=== PATIENT | female | born 1970 | race Caucasian/White ===

== ENCOUNTER → 2020-02-08 | Outpatient (CLI) | payer BC, OTHER, SELFPAY ==
[2020-02-08 11:07] VITALS: BMI 26.0
[2020-02-13 10:47] LABS: HPV APTIMA, High Risk Negative (Negative)
== END | disposition home or self-care (01) ==
PROVIDERS: PCP Family Medicine; Referring Provider Nurse Practitioner Women's Health; Visit Provider Nurse Practitioner Women's Health
DX: Z12.4 Encounter for screening for malignant neoplasm of cervix (principal)
CPT/HCPCS: 87624; 88175; G0145

== ENCOUNTER → 2020-02-12 13:54 | Outpatient (CLI) | payer BC, OTHER, SELFPAY ==
[2020-02-08 11:07] VITALS: BMI 26.0
--- NOTE | 2020-02-12 13:56 | US_ITS ---
STUDY: ULTRASOUND OF THE FEMALE PELVIS - COMPLETE REASON FOR EXAM: Female, 49 years old. Enlarged uterus. LMP: 01/29/2020. TECHNIQUE: Transabdominal and transvaginal. TECHNICAL QUALITY: Adequate. COMPARISON: None. FINDINGS: The uterus is anteverted and is in a midline position. The uterus is enlarged and measures 11.1 x 6.2 x 4.6 cm. Normal uterine cervix. The endometrium measures 6 mm in thickness, and is hyperechoic. There is no demonstrated endometrial mass. The uterine fibroids largest measuring 3.2 x 3.1 x 3.1 cm. Myometrial calcification measuring 0.8 x 0.6 x 0.4 cm. I.U.D. - The patient does not have an I.U.D. Right ovary not visualized. The left ovary is visualized. The left ovary is enlarged and measures 5.0 x 4.3 x 4.1 cm. Left ovarian volume is 46 mL. Anechoic left ovarian cyst containing a thin septation measuring 4.3 x 2.8 x 3.1 cm. There is no visualized left adnexal mass or complex lesion. There is normal arterial and normal venous vascularity. There is no fluid in the cul-de-sac. The pre void volume of the bladder was 744 ml. Polycystic ovary disease: No. US/Transvaginal Non- IMPRESSION: Enlarged fibroid uterus with the largest fibroid measuring 3.2 cm in greatest dimension. Right ovary not visualized. Enlarged left ovary containing a minimally complex ovarian cyst. This can be followed after 2-3 menstrual cycles or sooner as clinically warranted. Electronically Signed: Austin Herron MD at 4:39 EDT , Service support ,
--- NOTE | 2020-02-12 13:56 | US_ITS ---
STUDY: ULTRASOUND OF THE FEMALE PELVIS - COMPLETE REASON FOR EXAM: Female, 49 years old. Enlarged uterus. LMP: 01/29/2020. TECHNIQUE: Transabdominal and transvaginal. TECHNICAL QUALITY: Adequate. COMPARISON: None. FINDINGS: The uterus is anteverted and is in a midline position. The uterus is enlarged and measures 11.1 x 6.2 x 4.6 cm. Normal uterine cervix. The endometrium measures 6 mm in thickness, and is hyperechoic. There is no demonstrated endometrial mass. The uterine fibroids largest measuring 3.2 x 3.1 x 3.1 cm. Myometrial calcification measuring 0.8 x 0.6 x 0.4 cm. I.U.D. - The patient does not have an I.U.D. Right ovary not visualized. The left ovary is visualized. The left ovary is enlarged and measures 5.0 x 4.3 x 4.1 cm. Left ovarian volume is 46 mL. Anechoic left ovarian cyst containing a thin septation measuring 4.3 x 2.8 x 3.1 cm. There is no visualized left adnexal mass or complex lesion. There is normal arterial and normal venous vascularity. There is no fluid in the cul-de-sac. The pre void volume of the bladder was 744 ml. Polycystic ovary disease: No. US/Pelvic (Non ) IMPRESSION: Enlarged fibroid uterus with the largest fibroid measuring 3.2 cm in greatest dimension. Right ovary not visualized. Enlarged left ovary containing a minimally complex ovarian cyst. This can be followed after 2-3 menstrual cycles or sooner as clinically warranted. Electronically Signed: Austin Herron MD at 4:39 EDT , Service support ,
== END ==
PROVIDERS: PCP Family Medicine; Referring Provider Nurse Practitioner Women's Health; Visit Provider Nurse Practitioner Women's Health
DX: N85.2 Hypertrophy of uterus (principal)
CPT/HCPCS: 76830; 76856

== ENCOUNTER → 2020-04-24 13:28 | Outpatient (CLI) | payer BC, OTHER, SELFPAY ==
[2020-02-08 11:07] VITALS: BMI 26.0
--- NOTE | 2020-04-24 13:30 | US_ITS ---
STUDY: ULTRASOUND OF THE FEMALE PELVIS - COMPLETE REASON FOR EXAM: Female, 49 years old. f/u left o cyst LMP: 03/26/2020 TECHNIQUE: Transabdominal and Transvaginal TECHNICAL QUALITY: Adequate. COMPARISON: 02/12/2020 FINDINGS: The uterus is anteverted and is in a midline position. The uterus measures 12.7 x 6.9 x 5.8 cm. Normal uterine cervix. The endometrium measures 12 mm in thickness, and is hyperechoic. There is no demonstrated endometrial mass. Heterogeneous attenuation the myometrium with multiple focal hypoechoic area suggestive of intramural fibroids measuring 2.4, 2.2, and 1.9 cm. I.U.D. - The patient does not have an I.U.D. The right ovary is visualized. The right ovary measures 1.9 x 2.9 x 1.0 cm. There is no right ovarian cyst or ovarian mass. There is no visualized right adnexal mass or complex lesion. There is normal arterial and normal venous vascularity. The left ovary is visualized. The left ovary measures 4.3 x 3.2 x 2.1 cm. There is no left ovarian cyst or ovarian mass. There is no visualized left adnexal mass or complex lesion. There is normal arterial and normal venous vascularity. There is no fluid in the cul-de-sac. The pre void volume of the bladder was ml. The post void volume of the bladder was ml. Polycystic ovary disease: No. US/Transvaginal Non- IMPRESSION: 1. Enlarged fibroid uterus. 2. Normal ovaries with interval resolution of the corpus luteum cyst of the left ovary. Electronically Signed: Alfonso Miner MD at 15:07 EST Tel , Service support ,
--- NOTE | 2020-04-24 13:30 | US_ITS ---
STUDY: ULTRASOUND OF THE FEMALE PELVIS - COMPLETE REASON FOR EXAM: Female, 49 years old. f/u left o cyst LMP: 03/26/2020 TECHNIQUE: Transabdominal and Transvaginal TECHNICAL QUALITY: Adequate. COMPARISON: 02/12/2020 FINDINGS: The uterus is anteverted and is in a midline position. The uterus measures 12.7 x 6.9 x 5.8 cm. Normal uterine cervix. The endometrium measures 12 mm in thickness, and is hyperechoic. There is no demonstrated endometrial mass. Heterogeneous attenuation the myometrium with multiple focal hypoechoic area suggestive of intramural fibroids measuring 2.4, 2.2, and 1.9 cm. I.U.D. - The patient does not have an I.U.D. The right ovary is visualized. The right ovary measures 1.9 x 2.9 x 1.0 cm. There is no right ovarian cyst or ovarian mass. There is no visualized right adnexal mass or complex lesion. There is normal arterial and normal venous vascularity. The left ovary is visualized. The left ovary measures 4.3 x 3.2 x 2.1 cm. There is no left ovarian cyst or ovarian mass. There is no visualized left adnexal mass or complex lesion. There is normal arterial and normal venous vascularity. There is no fluid in the cul-de-sac. The pre void volume of the bladder was ml. The post void volume of the bladder was ml. Polycystic ovary disease: No. US/Pelvic (Non ) IMPRESSION: 1. Enlarged fibroid uterus. 2. Normal ovaries with interval resolution of the corpus luteum cyst of the left ovary. Electronically Signed: Alfonso Miner MD at 15:07 EST Tel , Service support ,
== END ==
PROVIDERS: PCP Family Medicine; Referring Provider Nurse Practitioner Women's Health; Visit Provider Nurse Practitioner Women's Health
DX: N83.12 Corpus luteum cyst of left ovary (principal); D25.9 Leiomyoma of uterus, unspecified
CPT/HCPCS: 76830; 76856

== ENCOUNTER → 2020-05-09 07:53 | Outpatient (CLI) | payer BC, OTHER, SELFPAY ==
[2020-02-08 11:07] VITALS: BMI 26.0
--- NOTE | 2020-05-09 07:59 | BI_ITS ---
MAMMOGRAPHY - BILATERAL SCREENING REASON FOR EXAM: Female, 50 years old. Routine annual screening examination. PERTINENT HISTORY: Non-contributory. TECHNIQUE: Digital bilateral breast lori (3D mammographic acquisition) in the CC and MLO projections. 2-D mediolateral oblique (MLO) and craniocaudad (CC) views of both breasts were obtained. CAD: Full Field Digital Mammography with Computer Added Detection was performed. COMPARISON: Comparison is made with prior outside examination dated 05/08/2019. FINDINGS: Breast Composition: The breasts are extremely dense, which lowers the sensitivity of mammography. There are no dominant masses or suspicious calcifications. No other significant abnormalities are identified. There has been no significant change since the prior study. BI/SCREEN MAMM (CAD) W/LORI BILAT IMPRESSION: Stable bilateral screening mammogram. Yearly follow-up mammogram recommended. (A) ASSESSMENT CATEGORY: BIRADS Category 1: Negative. A letter regarding these results will be sent to the patient by the facility within 30 days. Approximately 10% of breast cancers are not detected by mammography. A normal mammogram should not delay biopsy of a clinically suspicious abnormality. [id number] Electronically Signed: Ludin Biggs, at 10:03 EST , Service support ,
== END ==
PROVIDERS: PCP Family Medicine; Referring Provider Nurse Practitioner Women's Health; Visit Provider Nurse Practitioner Women's Health
DX: Z12.31 Encounter for screening mammogram for malignant neoplasm of breast (principal)
CPT/HCPCS: 77063; 77067

== ENCOUNTER → 2021-05-07 14:38 | Outpatient (CLI) | payer BC, OTHER, SELFPAY ==
--- NOTE | 2021-05-07 14:41 | BI_ITS ---
MAMMOGRAPHY - BILATERAL SCREENING REASON FOR EXAM: Female, 51 years old. Routine annual screening examination. PERTINENT HISTORY: Non-contributory. TECHNIQUE: Digital bilateral breast lori (3D mammographic acquisition) in the CC and MLO projections. 2-D mediolateral oblique (MLO) and craniocaudad (CC) views of both breasts were obtained. CAD: Full Field Digital Mammography with Computer Added Detection was performed. COMPARISON: Comparison is made with prior study dated 05/09/2020. FINDINGS: Breast Composition: The breasts are extremely dense, which lowers the sensitivity of mammography. There are no dominant masses or suspicious calcifications. No other significant abnormalities are identified. There has been no significant change since the prior study. BI/SCRN MAMM (CAD)W/LORI BILAT IMPRESSION: Stable bilateral screening mammogram. Yearly follow-up mammogram recommended. (A) ASSESSMENT CATEGORY: BIRADS Category 1: Negative. A letter regarding these results will be sent to the patient by the facility within 30 days. Approximately 10% of breast cancers are not detected by mammography. A normal mammogram should not delay biopsy of a clinically suspicious abnormality. [id number] Electronically Signed: Ludin Biggs MD at 15:37 EST , Service support ,
== END ==
PROVIDERS: PCP Family Medicine; Visit Provider Nurse Practitioner Women's Health
DX: Z12.31 Encounter for screening mammogram for malignant neoplasm of breast (principal)
CPT/HCPCS: 77063; 77067

== ENCOUNTER 2022-01-20 05:37 | Day surgery (SDC) | payer OTHER, SELFPAY ==
[2022-01-06 16:24] LABS: Hematocrit 36.3 % (37-47); Mean Corp Hgb Conc 33.1 g/dL (32-36); Mean Corpuscular Hgb 29.9 pg (27.0-32.0); Mean Corpuscular Volume 90.3 fL (81-99); Mean Platelet Vol. 11.2 fl (6.2-12.0); Platelet Count 284 K/mm3 (150-450); RBC Distribution Width CV 12.8 % (11.6-14.6); RBC Distribution Width SD 41.9 fl (35.1-43.9); Red Blood Count 4.02 M/mm3 (4.2-5.4); White Blood Count 5.6 K/mm3 (4.4-11.0)
[2022-01-06 16:46] LABS: Magnesium 2.2 mg/dL (1.6-2.6)
--- NOTE | 2022-01-19 10:54 | PCM.HP.BLA ---
History and Physical Date of Admission: 01/20/22 MR#: [id number] Acct: [id number] Name:? MELCHOR MOSQUERA Rep #: [id number] : 1970 ? ? Provider: Dr. Melchor Padilla, DO Age/Sex:? 51/F ? ? Location: [facility] [place] Status: Signed Intake Vital Signs ? 01/06/2213:23 01/06/2213:25 Height 5 ft 3 in 5 ft 3 in Weight: 154 lb 6 oz ? BMI 27.3 ? BP 118/78 ? 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 Alcohol use Anemia Anxiety Arthritis Asthma Former smoker Wears glasses Surgical History? History of Family History? Mother Myasthenia gravis Social History? household members:? spouse and family number of children:? 2 current occupational status:? 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 No sexually active:? Yes Smoking Status:? Former smoker alcohol intake:? current alcohol intake frequency: a few times a week substance use type:? does not use diet:? Weight Watchers well-balanced diet:? daily or most days caffeine:? Yes what type of physical activity do you participate in:? walking frequency:? daily seatbelt use:? always do you feel safe at home:? Yes additional social history:? - [facility] robotic hyst Details: Details: MELCHOR MOSQUERA is a 51 year old (2 sections) who presents for the complaint of menses lasting 7-10 days and associated with migraines without aura that last 3 days. In the past she used a mirena IUD and was doing great. The device at the same time that her got prostate cancer and he had everything removed so they didn't have to worry about . She went a while without anything but periods became heavy so she went back to the IUD. Only this time, the device was not working well and she told her FACING SLITTER that something was not feeling right. She felt that she was not listened to and the device fell out on it's own. She is not interested in continuing with OCPs due to side effects and risks. She desires hysterectomy. The uterus is approximately 10 cm in size. She also desires removal of the ovaries. Pregancy History ? ? ? 4 ? Elective abortions ? Hx Para ? ? ? 2 ? Spontaneous abortions ? Hx # Term Pregnancies ? Ectopic pregnancies ? Hx # Pregnancies ? Multiple births ? # of living children ? ? ? 2 Past Pregnancies Del. Date Name GA/Weeks Outcome Route [facility] Alexandre 2000 ? Unknown Omer 2002 ? ROS Const ROS Unobtainable: All systems reviewed & are unremarkable except as noted in H Resp Resp: Reports system reviewed and no additional complaints, except as documented; Denies cough GI GI: Reports as per HPI Psych Psych: Reports system reviewed and no additional complaints, except as documented Exam Const General: cooperative, healthy appearing, comfortable and no acute distress Neck Neck: normal visual inspection Chest Chest palpation & inspection: normal inspection of the chest Resp Effort & Inspection: normal respiratory effort GI Inspection: normal to inspection and scar Palpation: soft and no hepatosplenomegaly Rectal Exam: symmetric and No tenderness Skin General: no rashes or lesions noted Neuro General: patient alert and patient oriented x3 Psych Appearance: grossly normal Speech and Movement: speech and movement normal Coding Level of Care Code Off vis,est,level 5 Diagnoses Menorrhagia with regular cycle? N92.0 Fibroids? D21.9 Mgrn wo aura wo intrc mgr? G43.009 Assessment and Plan Assessment and Plan (1) Menorrhagia with regular cycle: ?Status:?Acute (2) Fibroids: ?Status:?Acute ?Comment: surg consult JV hysterectomy ?Plan: After discussing the patient's diagnosis and treatment plan options, patient wishes to proceed with surgical management.? The plan is to proceed with a total robotic hysterectomy, bilateral salpingo-oophorectomy, and cystoscopy. Ultrasaound showed 10 cm uterus and emb was benign. I have discussed with the patient the risks, benefits, and alternatives of the procedure which include but are not limited to risks of anesthesia, bleeding, infection, possible damage to bowel, bladder, or surrounding vasculature which could lead to additional surgery to evaluate any complications.? Patient agrees to procedure and wishes to proceed.? ACOG/uptodate references given for additional information regarding procedure.? (3) Mgrn wo aura wo intrc mgr: ?Status:?Acute ?Comment: will discuss with PCP UPDATE- I have seen the patient and performed any clinically relevant updates to the history and physical exam. Melchor Padilla, DO
[2022-01-20] VITALS (10 sets, daily range): BP systolic 100–113; BP diastolic 57–81; PULSE 70–90; RESP 14–18; TEMP 36.2–37; O2SAT 98–100; BMI 27.4
[2022-01-20] MEDS: Gabapentin 600 MG Tablet PO (06:30)
[2022-01-20] MEDS: Celecoxib 200 MG Capsule 400 MG PO (06:30)
[2022-01-20] MEDS: Acetaminophen 500 MG Tablet 1000 MG PO (06:30)
[2022-01-20] MEDS: Lactated Ringers 1,000 ML 40 ML IV (06:41)
[2022-01-20 06:58] LABS: Internal QC Validated? YES +Cl - CLEAR BKGD; Pregnancy, Serum, hCG Quali. NEGATIVE Negative
--- NOTE | 2022-01-20 07:30 | HYST_PTH ---
PATIENT: MELCHOR MOSQUERA [place] [facility] [id number] AGE/SX: 51/F ROOM: RE01/20/[address]: Dr. Melchor Padilla DO : 1970 BED: DIS: 01/20/2022 SPEC #: [id number] RECD: 01/20/22 10:31 STATUS: CORNELIA CYR #: [id number] CHALINO: 01/20/22 07:[address]: Melchor Padilla DEPT: SURGICAL PATHOLOGY RECD BY: Abby Giron ENTERED: 01/20/22 10:51 SP TYPE: HYSTERECT OTHR DR: Dr. Maurice Hernandez MD Tissues: Uterus, NOS Procedures: Surgery Specimen Level V HEADER OPERATION: ERAS, total robotic hysterectomy, salpingo-oophorectomy PRE-OP DIAGNOSIS: Menorrhagia with regular cycle, fibroids TISSUE SUBMITTED: Cervix, uterus, bilateral fallopian tubes and bilateral ovaries MICROSCOPIC DIAGNOSIS Cervix, uterus, bilateral fallopian tubes and bilateral ovaries, hysterectomy and bilateral salpingo-oophorectomy: Cervix ? chronic cystic cervicitis. Endometrium ? proliferative endometrium. Myometrium ? intramural and submucosal leiomyomas (largest measuring 3 cm in greatest dimension). - Adenomyosis. Bilateral fallopian tubes - no pathologic diagnosis. Right ovary - no pathologic diagnosis. Left ovary ? physiologic follicular cyst. Right paratubal cyst. SJ:laureen 01/21/2022 MICROSCOPIC DESCRIPTION Slides are reviewed. GROSS DESCRIPTION Received in fixative is one container labeled with the patient's name and designated cervix, uterus, bilateral fallopian tubes and bilateral ovaries. The specimen consists of a hysterectomy specimen consisting of uterus with cervix and attached bilateral fallopian tubes and ovaries. The uterus with cervix weighs 152 gm and measures 12.5 x 8 x 5 cm. The serosal surface shows focal ragged area anteriorly. The ectocervical mucosa is unremarkable. The external os is oval in contour. The endocervical canal measures 3.5 cm in length and the endocervical mucosa is unremarkable. Sections of the cervix reveal multiple cysts filled with mucoid material. The triangular endometrial cavity measures 6 cm in length and up to 3.5 cm in width. The endometrium is cooper, glistening without any mass lesion and measures 0.1 cm in thickness. Sections of the uterine wall reveal multiple intramural and submucosal nodular masses. The largest mass is submucosal and measures 3 cm in greatest dimension. Sections of these masses reveal cooper whorled cut surfaces without areas of hemorrhage, necrosis or cystic degeneration. The uninvolved uterine wall measures up to 2.5 cm in thickness. The right fallopian tube measures 6.5 cm in length and 0.6 cm in diameter. The fimbrial end is identified. A paratubal cyst is noted measuring 1 cm in greatest dimension. No tubo-ovarian adhesions are noted. The right ovary measures 2.5 x 2 x 1 cm. Sections reveal a few cysts, largest cyst measuring 0.5 cm in greatest dimension. The left fallopian tube is similar appearance to right and measures 6 cm in length and 0.5 cm in diameter. The soft to cystic left ovary measures 2.5 x 2 x 1.5 cm. Sections reveal a cyst filled with clear fluid measuring 1.5 cm in greatest dimension. Dog Handler sections are submitted in 12 cassettes as follows: 1 - anterior cervix, 2 - posterior cervix, 3 & 4 - anterior uterine wall, 5 & 6 - posterior uterine wall, 7 - largest nodular mass, 8??second and third largest nodular masses, 9 - right fallopian tube and paratubal cyst, 10 - right ovary, 11 - left fallopian tube and portion of the cyst, left ovary, 12 - left ovary including cyst. / DESTINY:laureen 01/20/2022 TC:1 CPT: 49502
--- NOTE | 2022-01-20 08:22 | PCM.DC ---
Discharge Instructions Diet Discharge Diet: No restrictions Activity May resume sexual activity in: 6 weeks Weight Bearing Status: Full weight bearing Dressing / Incision Call your doctor if your incision/area has: Continuous Slow Oozing, Sudden Increased Bleeding, Increased Pain/ Swelling, Increased Redness and Foul Smelling Discharge Call your doctor if you observe: Fever of 101 or Higher, Using more than 1 pad per hour, Shortness of breath, Chest pain and Uncontrolled pain Suture Line Care: Avoid Pulling/Pushing and Avoid Pinching/Bending Remove Dressing in: 1 week (if present) Cleanse incision/area with: Soap & Water and Keep Dressing Clean & Dry Follow Up Care Please Follow Up With: Modesta Padilla DO When: Call to make an appointment with your doctor for a postop visit in 2 and 6 weeks Test Results: Test results from this visit will be discussed in further detail at your follow-up appointment, if applicable. Discharge Plan Admission Primary Reason for Your Visit: hysterectomy Attending Provider: Modesta Padilla Primary Care Provider: Maurice Hernandez Discharge Orders/Prescriptions Prescriptions: New ibuprofen 600 mg tablet 600 mg PO Q6H PRN (Reason: pain) 7 Days Qty: 28 0RF Rx Instructions: one tab every 6 hrs as needed for mild to moderate pain oxycodone-acetaminophen [Percocet] 5-325 mg tablet 1 tab PO Q4H PRN (Reason: pain) 7 Days Qty: 30 0RF Continued Zyrtec 10 mg capsule 10 mg PO DAILY citalopram [Celexa] 20 mg tablet 40 mg PO DAILY calcium carbonate-vitamin D3 600 mg-5 mcg (200 unit) Tablet 1 tab PO DAILY fluticasone propionate 50 mcg/actuation [place],Suspension 2 spray INTRANASAL DAILY Rx Instructions: administer into each nostril Other Ambulatory Orders: ,Urine (Routine) Timeframe: [id number] Facility: [facility] [place] - Location: Laboratory Ordered By: Dr. Modesta Padilla Referrals / Follow Up: Maurice Hernandez MD [Primary Care Provider] - Disposition Disposition (needs filled in before D/C Order can be placed): Home, Self Care
[2022-01-20] MEDS: Cefazolin 2 GM in 0.9% Normal Saline 100 ML IV (08:30)
[2022-01-20] MEDS: Bupivacaine 0.25% 30 ML Vial (08:43)
[2022-01-20 10:00] LABS: Bedside Glucose 73 mg/dL (74-106)
--- NOTE | 2022-01-20 10:20 | OP.PCM_ITS ---
Operative Report Date of Procedure: 01/20/22 Preoperative diagnosis:pelvic pain, menorrhagia, h/o 4 sections Postoperative diagnosis: pelvic pain, menorrhagia, h/o 4 sections, marked pelvic adhesions Procedure: Total robotic hysterectomy bilateral salpingo-oophorectomy, extensive lysis of adhesions, and cystoscopy Anesthesia: General endotracheal intubation Estimated blood loss: 100cc Urine output:1100cc Drains: None Implanted material: None Complications: None surgeon: Dr. Modesta Padilla DO Magazine Repairer: Camilla Escamilla COSMETICS PRESSER Findings: 12 cm size uterus, normal appearing ovaries and tubes. On exploration of the abdominal cavity the uterus, adnexa, bowel, and liver were found to be normal with exception of marked amount of adhesions of the anterior aspect of the uterus. Cystoscopy showed no evidence of leaking at approximately 250 cc of normal saline, positive ureteral orifices and jet flow are seen and no suture material was appreciated in the bladder. Specimens removed: Uterus and cervix, Bilateral tubes and ovaries Reason for surgery: This is a 51-year-old who presented to my office from with history of blank the planned procedure is for a robotic hysterectomy the risks benefits and alternatives were discussed with the patient the patient had a clear understanding of the procedure and a consent form was signed. Procedure: The patient was placed in the dorsal low lithotomy position and prepped and draped in the normal sterile fashion both abdominally and in the perineum. Her legs were placed in stirrups a Toledo catheter was inserted into the urethra without difficulty. A weighted speculum was placed in the vagina and a single- tooth tenaculum was used to grasp the anterior lip of the cervix. An Advincula uterine manipulator was inserted through the cervix without complication. It was then tied into place at the 2 and 10:00 locations on the cervix. Gloves were changed and attention was turned towards the abdomen. Approximately 23 cm above the pubic symphysis in the midline, and after Marcaine injection, a 8 mm incision was made. An 8 mm trocar was inserted through the laparoscope, then inserted into the abdomen under direct visualization using the laparoscope. Good abdominal placement was noted and no complications were appreciated. An air seal device was utilized to create pneumoperitoneum. At 12 cm lateral to the midline on the left and right sides 8 mm accessory ports were placed. Next a left upper quadrant 8 mm itinerant teacher assistant port site was placed. The patient was placed in steep Trendelenburg position. The robot was docked. The hysterectomy was initiated first by taking down adhesions to the uterus using the vessel sealer device and the monopolar cautery scissors. Next, the round ligament on each side using the vessel sealer device. The peritoneum between the round ligament and the IP ligament was opened using electrocautery and extended the length of the IP ligament. The IP ligament was then taken down using the vessel sealer device. These areas were freed without complication the broad ligament was then and taken down using the vessel sealer device. Next the bladder flap was taken down without complication. This was done using monopolar cautery to the level of the cervical vaginal junction. After the bladder flap was created, uterine vessels were then isolated and cauterized using the vessel sealer device and EndoShears. At this point the uterine vessels were taken down further starting from the ascending branch, dissecting along the edges of the cervix to the level of the cervical vaginal junction with hemostasis appreciated. The cervical vaginal junction was then using monopolar cautery in a circumferential pattern across the superior aspect of the cervix. The specimen was delivered through the vagina and sent to pathology. The remaining vaginal cuff was then closed using OV lock suture. This was performed in a running technique. Excellent hemostasis was obtained and good closure was noted. Irrigation was then performed. All operative sites were noted to be hemostatic. A cystoscopy was performed with a 70 degree cystoscope through the urethra into the bladder without complication. The bladder was instilled with approximately 250 cc of normal saline. Intraoperative images were made. Ureteral orifices and jets were identified. No suture material was appreciated in the bladder. The bladder was then drained and cystoscope was removed. The abdominal cavity was again examined using the laparoscope after the robot was undocked. All operative sites were noted to be hemostatic. The trochars were removed under direct visualization without complication and pneu moperitoneum was reduced. At this point the skin was then closed using 4-0 Monocryl subcuticular stitch and sealed with surgical glue. The patient tolerated the procedure well sponge lap and needle counts were correct x2 the patient was taken to the recovery room in stable condition. Multi Select Codes Urinary/Genital Urinary/Genital CPT Codes: 13238 TLH+BS/O <250gr uterus
[2022-01-20] MEDS: Lactated Ringers @ 70 MLS/HR 75 ML IV (10:30)
[2022-01-20] MEDS: HYDROcodone Bitartrate/Apap 5/325 Tablet PO (12:30)
== END 2022-01-20 13:22 | disposition home or self-care (01) ==
LOC: SDC 05:37 → AC 05:38
PROVIDERS: Anesthesiology; PCP Family Medicine; Referring Provider Obstetrics & Gynecology; Visit Provider Obstetrics & Gynecology
PROC: 0UT90ZZ Resection of Uterus, Open Approach (ICD-10-PCS; CPT 58571; principal; 2022-01-20 07:10)
DX: D25.0 Submucous leiomyoma of uterus (principal); D25.1 Intramural leiomyoma of uterus; N83.8 Other noninflammatory disorders of ovary, fallopian tube and broad ligament; N72 Inflammatory disease of cervix uteri; F41.9 Anxiety disorder, unspecified; J45.909 Unspecified asthma, uncomplicated; Z87.891 Personal history of nicotine dependence; Z79.899 Other long term (current) drug therapy
CPT/HCPCS: 58571; S2900; 00840; 36415; 82962; 83735; 84703; 85027; 86850; 86900; 86901; 88307; J7120; J2405; J3475

== ENCOUNTER → 2022-05-11 | Outpatient (CLI) | payer OTHER, SELFPAY ==
--- NOTE | 2022-05-11 08:26 | BI_ITS ---
MAMMOGRAPHY - BILATERAL SCREENING REASON FOR EXAM: Female, 52 years old. Routine annual screening examination. PERTINENT HISTORY: Non-contributory. TECHNIQUE: Digital bilateral breast lori (3D mammographic acquisition) in the CC and MLO projections. 2-D mediolateral oblique (MLO) and craniocaudad (CC) views of both breasts were obtained. CAD: Full Field Digital Mammography with Computer Added Detection was performed. COMPARISON: 05/07/2021, 05/09/2020. FINDINGS: Breast Composition: The breasts are extremely dense, which lowers the sensitivity of mammography. There are no dominant masses or suspicious calcifications. No other significant abnormalities are identified. There has been no significant change since the prior study. BI/SCRN MAMM (CAD)W/LORI BILAT IMPRESSION: Stable bilateral screening mammogram. Yearly follow-up mammogram recommended. (A) ASSESSMENT CATEGORY: BIRADS Category 1: Negative. A letter regarding these results will be sent to the patient by the facility within 30 days. Approximately 10% of breast cancers are not detected by mammography. A normal mammogram should not delay biopsy of a clinically suspicious abnormality. Electronically Signed: Dario Lopez, at 16:34 EST ,
== END | disposition home or self-care (01) ==
LOC: OPBI 08:25
PROVIDERS: PCP Family Medicine; Visit Provider Obstetrics & Gynecology
DX: Z12.31 Encounter for screening mammogram for malignant neoplasm of breast (principal)
CPT/HCPCS: 77063; 77067

== ENCOUNTER → 2023-05-18 | Outpatient (CLI) | payer BC, OTHER, SELFPAY ==
--- NOTE | 2023-05-18 08:00 | BI_ITS ---
MAMMOGRAPHY - BILATERAL SCREENING REASON FOR EXAM: Female, 53 years old. Routine annual screening examination. PERTINENT HISTORY: Non-contributory. TECHNIQUE: Digital bilateral breast lori (3D mammographic acquisition) in the CC and MLO projections. 2-D mediolateral oblique (MLO) and craniocaudad (CC) views of both breasts were obtained. CAD: Full Field Digital Mammography with Computer Added Detection was performed. COMPARISON: Comparison is made with prior study May 11, 2022 and May 07, 2021. FINDINGS: Breast Composition: The breasts are extremely dense, which lowers the sensitivity of mammography. There are no dominant masses or suspicious calcifications. No other significant abnormalities are identified. There has been no significant change since the prior study. BI/SCRN MAMM (CAD)W/LORI BILAT IMPRESSION: Stable bilateral screening mammogram. Yearly follow-up mammogram recommended. (A) ASSESSMENT CATEGORY: BIRADS Category 1: Negative. A letter regarding these results will be sent to the patient by the facility within 30 days. Approximately 10% of breast cancers are not detected by mammography. A normal mammogram should not delay biopsy of a clinically suspicious abnormality. [id number] Electronically Signed: Ludin Biggs MD at 14:06 EST ,
== END | disposition home or self-care (01) ==
LOC: OPBI 07:59
PROVIDERS: PCP Family Medicine; Referring Provider Advanced Practice Midwife; Visit Provider Advanced Practice Midwife
DX: Z12.31 Encounter for screening mammogram for malignant neoplasm of breast (principal)
CPT/HCPCS: 77063; 77067

== ENCOUNTER → 2024-07-11 | Outpatient (CLI) | payer BC, OTHER, SELFPAY ==
--- NOTE | 2024-07-11 07:23 | BI_ITS ---
MAMMOGRAPHY - BILATERAL SCREENING REASON FOR EXAM: Female, 54 years old. Routine annual screening examination. PERTINENT HISTORY: Non-contributory. TECHNIQUE: Digital bilateral breast lori (3D mammographic acquisition) in the CC and MLO projections. 2-D mediolateral oblique (MLO) and craniocaudad (CC) views of both breasts were obtained. CAD: Full Field Digital Mammography with Computer Added Detection was performed. COMPARISON: Comparison is made with prior study May 18, 2023 and May 11, 2022. FINDINGS: Breast Composition: The breasts are extremely dense, which lowers the sensitivity of mammography. There are no dominant masses or suspicious calcifications. No other significant abnormalities are identified. There has been no significant change since the prior study. BI/SCRN MAMM (CAD)W/LORI BILAT IMPRESSION: Stable bilateral screening mammogram. Yearly follow-up mammogram recommended. (A) ASSESSMENT CATEGORY: BIRADS Category 1: Negative. A letter regarding these results will be sent to the patient by the facility within 30 days. Approximately 10% of breast cancers are not detected by mammography. A normal mammogram should not delay biopsy of a clinically suspicious abnormality. [id number] Electronically Signed: Ludin Biggs MD at 9:46 EST ,
== END | disposition home or self-care (01) ==
LOC: OPBI 07:22
PROVIDERS: PCP Family Medicine; Referring Provider Obstetrics & Gynecology; Visit Provider Obstetrics & Gynecology
DX: Z12.31 Encounter for screening mammogram for malignant neoplasm of breast (principal)
CPT/HCPCS: 77063; 77067